=== PATIENT | male | born 1980 | race African-American/Black ===

== ENCOUNTER 2025-01-24 09:15 | Emergency (ER) | payer OTHER ==
[~2025-01-24] VITALS: Ht 185.4 cm; Wt 86.0 kg
[2025-01-24 09:32] VITALS: O2SAT 100
[2025-01-24] MEDS: IBUPROFEN 600MG TABLET PO ONE (10:42)
[2025-01-24] MEDS: TETANUS, DIPHTHERIA, PERTUSSIS VAC/PF 0.5ML (>10YR OLD) IM ONE (10:43)
[2025-01-24] MEDS: BACITRACIN ZINC OINT UDPKT TOP ONE (11:03)
[2025-01-24] MEDS: LIDOCAINE HCL/PF 1% 10 MG/ML 5ML VIAL INFIL ONE (11:03)
[2025-01-24 11:25] VITALS: BP 150/80; PULSE 80; RESP 18; TEMP 36.9; O2SAT 100
== END 2025-01-24 11:30 | disposition home or self-care (01) ==
LOC: ER 09:15
DX: S61.411A Laceration without foreign body of right hand, initial encounter (principal); W01.0XXA Fall on same level from slipping, tripping and stumbling without subsequent striking against object, initial encounter; Y93.89 Activity, other specified; Y92.89 Other specified places as the place of occurrence of the external cause; Y99.8 Other external cause status
CPT/HCPCS: 73130; 90715; 12001; 90471; 99283; J2003; Z7610